=== PATIENT | female | born 1960 | race Two or more races ===

== ENCOUNTER → 2019-03-22 09:31 | Outpatient (CLI) | payer OTHER | END | disposition home or self-care (01) | LOC: LAB 09:31 | DX: C50.511 Malignant neoplasm of lower-outer quadrant of right female breast (principal); R10.11 Right upper quadrant pain; G58.8 Other specified mononeuropathies ==

== ENCOUNTER 2019-11-18 11:21 | Emergency (ER) | payer OTHER ==
[~2019-11-18] VITALS: Ht 172.7 cm; Wt 95.3 kg
== END 2019-11-18 15:02 | disposition home or self-care (01) ==
LOC: ER 11:21
DX: J02.9 Acute pharyngitis, unspecified (principal)

== ENCOUNTER 2020-08-16 05:10 | Day surgery (SDC) | payer OTHER | END 2020-08-16 10:10 | disposition home or self-care (01) | LOC: CIR.AMB 05:10 | PROVIDERS: ATTEND Surgery Surgery of the Hand | DX: M65.841 Other synovitis and tenosynovitis, right hand (principal) ==

== ENCOUNTER 2021-02-17 07:52 | Emergency (ER) | payer OTHER ==
[~2021-02-17] VITALS: Ht 152.4 cm; Wt 97.5 kg
[2021-02-17] MEDS ORDERED: SYNTHROID50 MCG PO (08:07)
[2021-02-17] MEDS ORDERED: HUMULIN N100 UNIT/2 IM (08:08)
[2021-02-17] MEDS ORDERED: PROTONIX40 MG PO (08:08)
[2021-02-17] MEDS ORDERED: IRBESARTAN-HCT1 EAC1 PO (08:08)
[2021-02-17] MEDS ORDERED: NORVASC5 MG PO (08:08)
[2021-02-17] MEDS ORDERED: SIMVASTATIN5 MG PO (08:09)
[2021-02-17] MEDS ORDERED: TOPROL XL100 M1 PO (08:09)
[2021-02-17] MEDS ORDERED: PERCOCET 10-321 EACH PO (08:09)
[2021-02-17] MEDS ORDERED: XELODA500 MG PO (08:10)
[2021-02-17] MEDS ORDERED: IXEMPRA IV (08:10)
== END 2021-02-17 15:32 | disposition home or self-care (01) ==
LOC: ER 07:52
DX: K29.70 Gastritis, unspecified, without bleeding (principal); C22.9 Malignant neoplasm of liver, not specified as primary or secondary